=== PATIENT | male | born 1990 | race Caucasian/White ===

== ENCOUNTER 2017-09-05 13:59 | Emergency (ER) | payer OTHER ==
[~2017-09-05] VITALS: Ht 172.7 cm; Wt 79.4 kg
[~2017-09-05 13:59] MED LIST: AMOX500 PO; AMOX50SU PO; CEPH500 PO; CLOT1TC TOP; DOXY100 PO; HYDACE5 PO; IBUP800 PO; METPHE20; METPHE5; NAPR500 PO; OXYACE5T PO; PENVK500 PO; RXHYDACE PO; SULTRIDS PO; Veetids 500500 MG PO
== END 2017-09-05 14:21 | disposition home or self-care (01) ==
LOC: ER 13:59
DX: J06.9 Acute upper respiratory infection, unspecified (principal); F17.200 Nicotine dependence, unspecified, uncomplicated
CPT/HCPCS: 99281

== ENCOUNTER 2018-10-21 22:12 | Emergency (ER) | payer OTHER ==
[~2018-10-21] VITALS: Ht 172.7 cm; Wt 72.6 kg
[2018-10-23] MEDS ORDERED: IBUP800 PO (19:55)
== END 2018-10-22 00:45 | disposition home or self-care (01) ==
LOC: ER 22:12
DX: S06.0X0A Concussion without loss of consciousness, initial encounter (principal); W22.8XXA Striking against or struck by other objects, initial encounter; F17.200 Nicotine dependence, unspecified, uncomplicated
CPT/HCPCS: 70450; 99284-25

== ENCOUNTER 2018-10-23 19:13 | Emergency (ER) | payer OTHER ==
[~2018-10-23] VITALS: Ht 172.7 cm; Wt 78.0 kg
[2018-10-23] MEDS ORDERED: IBUP800 PO (19:55)
== END 2018-10-23 20:02 | disposition home or self-care (01) ==
LOC: ER 19:13
DX: G44.309 Post-traumatic headache, unspecified, not intractable (principal); F07.81 Postconcussional syndrome; F17.200 Nicotine dependence, unspecified, uncomplicated
CPT/HCPCS: 99283

== ENCOUNTER 2021-09-01 21:51 | Emergency (ER) | payer OTHER ==
[~2021-09-01] VITALS: Ht 172.7 cm; Wt 81.7 kg
== END 2021-09-01 22:54 | disposition home or self-care (01) ==
LOC: ER 21:51
DX: K40.90 Unilateral inguinal hernia, without obstruction or gangrene, not specified as recurrent (principal); F17.200 Nicotine dependence, unspecified, uncomplicated
CPT/HCPCS: 99282

== ENCOUNTER 2022-04-13 02:35 | Emergency (ER) | payer OTHER | END 2022-04-13 04:25 | LOC: ER 02:35 | DX: K40.90 Unilateral inguinal hernia, without obstruction or gangrene, not specified as recurrent (principal) | CPT/HCPCS: 99283 ==